=== PATIENT | female | born 1945 | race Caucasian/White ===

== ENCOUNTER 2017-06-25 12:02 | Day surgery (SDC) | payer OTHER, BC ==
[2017-06-25] MEDS ORDERED: morphine CARPU-JECT 4 MG/1 ML DISP.SYRIN IVPUSH ONE ×3 (12:05→13:45)
--- NOTE | 2017-06-25 12:08 | PDOC ---
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 Patient reports she had her right leg propped up on the toilet and suddenly her leg popped out. Patient reports she fell to the floor. Denies head strike or loss of consciousness. She reports she landed on her buttocks. She called Dr. Ware who had done her hip replacement who advised her to come to the emergency department. Patient denies any fevers or chills. Denies headache, neck pain, chest pain, shortness of breath, abdominal pain, nausea/vomiting/diarrhea, lower extremity edema, urinary symptoms. Past History - Past Medical History Allergies/Adverse Reactions: Allergies Allergy/AdvReac Type Severity Reaction Status Date / Time monosodium glutamate Allergy Severe Swelling Verified 06/27/15 13:31 Nitrate Analogues Allergy Severe Swelling Verified 06/27/15 13:31 sulfite Allergy Severe Swelling Verified 06/27/15 13:31 latex AdvReac Verified 06/25/17 12:23 Home Medications: Ambulatory Orders Levothyroxine [Synthroid -] 100 mcg PO DAILY 06/27/15 Azacitidine [Vidaza] 100 mg SQ ASDIR 06/25/17 Senna - 2 PO DAILY 06/25/17 Anemia: No Asthma: No Cancer: No Cardiac Disorders: No CVA: No COPD: No CHF: No Dementia: No Diabetes: No GI Disorders: No Disorders: No HTN: No Hypercholesterolemia: No Liver Disease: No Seizures: No Thyroid Disease: Yes (HYPOTHYROIDISM) - Surgical History Abdominal Surgery: No Appendectomy: No Cardiac Surgery: No Cholecystectomy: No Lung Surgery: No Neurologic Surgery: No Orthopedic Surgery: Yes (LEFT HIP THR 2009) - Suicide/Smoking/Psychosocial Hx Smoking History: Former smoker Have you smoked in the past 12 months: No If you are a former smoker, when did you quit?: OVER 20 YEARS Hx Alcohol Use: Yes (SOCIALLY FEW TIMES PER WEEK) Drug/Substance Use Hx: No Substance Use Type: Alcohol Hx Substance Use Treatment: No Review of Systems - Review of Systems Comments:: 06/25/17 13:04 GENERAL/CONSTITUTIONAL: No fever or chills. No weakness. HEAD, EYES, EARS, NOSE AND THROAT: No change in vision. No ear pain or discharge. No sore throat. GASTROINTESTINAL: No nausea, vomiting, diarrhea or constipation. GENITOURINARY: No dysuria, frequency, or change in urination. CARDIOVASCULAR: No chest pain or shortness of breath. RESPIRATORY: No cough, wheezing, or hemoptysis. MUSCULOSKELETAL: +hip pain. No neck or back pain. SKIN: No rash NEUROLOGIC: No headache, vertigo, loss of consciousness, or change in strength/ sensation. ENDOCRINE: No increased thirst. No abnormal weight change. HEMATOLOGIC/LYMPHATIC: No anemia, easy bleeding, or history of blood clots. ALLERGIC/IMMUNOLOGIC: No hives or skin allergy. *Physical Exam - Physical Exam Comments: 06/25/17 13:06 GENERAL: Awake, alert, and fully oriented, appears uncomfortable HEAD: No signs of trauma EYES: PERRLA, EOMI, sclera anicteric, conjunctiva clear ENT: Auricles normal inspection, hearing grossly normal, nares patent, oropharynx clear without exudates. Moist mucosa NECK: Normal ROM, supple, no lymphadenopathy, JVD, or masses LUNGS: Breath sounds equal, clear to auscultation bilaterally. No wheezes, and no crackles HEART: Regular rate and rhythm, normal S1 and S2, no murmurs, rubs or gallops ABDOMEN: Soft, nontender, normoactive bowel sounds. No guarding, no rebound. No masses EXTREMITIES: RLE short and internally rotated. 2+ TP pulse in RLE. Otherwise: Normal range of motion, no edema. No clubbing or cyanosis. No cords , erythema, or tenderness. 2+ peripheral pulses NEUROLOGICAL: Normal speech, cranial nerves intact, negative pronator drift, 5/ 5 strength in b/l UE & LLE, unable to move RLE 2/2 pain, normal sensation to light touch in all 4 extremities, normal cerebellar exam, gait deferred SKIN: Warm, Dry, normal turgor, no rashes or lesions noted. ED Treatment Course - LABORATORY CBC & Chemistry Diagram: 06/25/17 12:55 06/25/17 12:55 - RADIOLOGY Radiology Studies Ordered: Category Date Time Status HIP & PELVIS-RIGHT [RAD] Stat Radiology 06/25/17 12:04 Ordered Medical Decision Making - Medical Decision Making 06/25/17 13:09 71-year-old female with a history of a right total hip replacement, MDS on chemotherapy presents to emergency Department with sudden onset right hip pain after her R leg gave out while shaving her leg. Vitals unremarkable. Exam with right lower extremity shortened and internally rotated. Likely dislocation of the hip. Dr. Ware is at the bedside, requests x-ray and will likely take the patient to the operating room for reduction. Preop labs have been ordered, morphine has been ordered for pain control. XR pending. 06/25/17 13:41 X-ray with right femoral prosthesis dislocation. Pain controlled with morphine. Dr. Ware will take the patient to the operating room later today. We will admit the patient to [facility]. CBC with no anemia, some leukopenia but no neutropenia. Remainder of labs are pending. 06/25/17 15:29 CMP wnl, pt transported to [facility] for reduction with Dr. Ware. *DC/Admit/Observation/Transfer Diagnosis at time of Disposition: Dislocation of hip joint prosthesis - Discharge Dispostion Condition at time of disposition: Stable Admit: Yes - Referrals - Patient Instructions - Post Discharge Activity - Attestations Physician Attestion: 06/25/17 13:43 I, Dr. Annette Motta MD, attest that this document has been prepared under my direction and personally reviewed by me in its entirety. I further attest, that it accurately reflects all work, treatment, procedures and medical decision -making performed by me.
[2017-06-25 12:32] VITALS: BMI 28.2
[2017-06-25] MEDS ORDERED: morphine SULFATE 4 MG/ML VIAL ONE ×3 (12:36→13:56)
[2017-06-25 13:05] LABS: BASO % 2.3 % (0-2.0); EOS % 1.8 % (0-4.5); HEMATOCRIT 35.5 % (32.4-45.2); HEMOGLOBIN 11.9 GM/dl (10.7-15.3); LYMPH % 29.1 % (8-40); MCH 35.2 pg (25.7-33.7); MCHC 33.6 g/dl (32.0-36.0); MEAN CELL VOLUME 104.6 fl (80-96); MEAN PLT VOLUME 8.6 fl (7.5-11.1); MONO % 16.7 % (3.8-10.2); NEUT % 50.1 % (42.8-82.8); PLATELET COUNT 180 K/MM3 (134-434); RDW 17.7 % (11.6-15.6); WHITE BLOOD COUNT 3.1 K/mm3 (4.0-10.8)
--- NOTE | 2017-06-25 13:35 | CONSULT ---
Consult - text type - Consultation Consultation Note: FULL CONSULT DICTATED IMP: ACUTE RIGHT HIP DISLOCATION PLAN: TO OR TODAY FOR CLOSED REDUCTION UNDER FLUORO AND ANESTHESIA
[2017-06-25 13:38] LABS: ALK PHOS 58 U/L (32-92); ANION GAP 5 (8-16); BILIRUBIN,TOTAL 0.6 mg/dl (0.2-1.0); BLOOD UREA NITROGEN 23 mg/dl (7-18); CALCIUM 8.4 mg/dl (8.4-10.2); CHLORIDE 107 mmol/L (98-107); CO2 23 mmol/L (22-28); CREATININE 0.8 mg/dl (0.6-1.3); GLUCOSE,RANDOM 98 mg/dl (74-106); POTASSIUM 4.3 mmol/L (3.5-5.1); SGOT/AST 25 U/L (10-42); SGPT/ALT 13 U/L (10-40); SODIUM 135 mmol/L (136-145)
[2017-06-25 13:50] LABS: ACTIVATED PTT 31.9 SECONDS (24.0-38.9)
[2017-06-25 13:54] LABS: INR 1.16 (0.82-1.09)
[2017-06-25] MEDS ORDERED: PROPOFOL 20 ML ONE (15:12)
[2017-06-25] MEDS ORDERED: MIDAZOLAM HCL 2 MG/2 ML SINGLE DOSE VIAL ONE (15:13)
--- NOTE | 2017-06-25 15:38 | CONS ---
DATE OF CONSULTATION: 06/25/2017 ORTHOPEDIC CONSULTATION/EMERGENCY ROOM [facility] The patient is a 71-year-old female well known to me. She is 2 years status post right total hip replacement and a few years status post left total hip replacement by another surgeon. The patient was on the toilet today and twisted and felt something pop inside her right hip. She had dislocated her left total knee replacement done by another surgeon a few years back and knew what it felt like that now she dislocated her right side and now presents to our emergency room complaining of pain. On physical exam, she has obvious shortening and internal rotation of her right lower extremity. Her calves are soft, nontender, neurovascularly intact. X-rays taken in the emergency room show a dislocated right total hip replacement. The acetabulum and femoral components appear well seated. IMPRESSION: Status post right hip dislocation. The risks, benefits, and alternatives discussed with the patient in great detail. The patient will be booked for a closed reduction under fluoroscopy and general anesthesia later today. We have to delay a few hours as the patient just age lunch at 10 o'clock, some and we will go ahead and delay little bit later this afternoon. The patient is now on cancer medication for MDS and white count appears a little bit low. Hematocrit is okay. We will try to send the patient home today and keep the patient away from other patients in the hospital to try to decrease the possibility of obtaining a nosocomial infection. RYAN VALDES M.D. [id number]
--- NOTE | 2017-06-25 15:43 | OP ---
Operative Note - Note: Operative Date: 06/25/17 Pre-Operative Diagnosis: DISLOCATED RIGHT TOTAL HIP REPLACEMENT Operation: CLOSED REDUCTION RIGHT HIP UNDER FLUORO AND IND IV SEDATION Post-Operative Diagnosis: Same as Pre-op Surgeon: Cristofer Ware Anesthesia: General Operative Report Dictated: Yes
[2017-06-25] MEDS ORDERED: oxyCODONE HCL 5 MG TABLET PO PRN (15:52)
--- NOTE | 2017-06-25 16:48 | OP ---
DATE OF OPERATION: 06/25/2017 PREOPERATIVE DIAGNOSIS: Dislocated right total hip replacement. POSTOPERATIVE DIAGNOSIS: Dislocated right total hip replacement. PROCEDURE: Closed reduction, right hip, under IV sedation and fluoroscopy. SURGICAL ATTENDING: Cristofer Ware MD ANESTHESIA: IV sedation. COMPLICATIONS: None. CONDITION: Recovery room in stable condition. DESCRIPTION OF OPERATIVE PROCEDURE: Patient was taken to the operating room on June 25, 2017. IV sedation was administered by the anesthesiologist. A gentle closed reduction was performed. Confirmation of excellent reduction was confirmed by fluoroscopy. The hip was taken through a range of motion and found to be very stable post reduction with no loosening of any of the components. Patient was awakened from anesthesia and transferred to Recovery in stable condition. No complications. Estimated blood loss is 0. CRISTOFER WARE M.D. CORNELIO/[id number]
[2017-06-25 17:47] VITALS: TEMP 97.9
[2017-06-25 17:55] VITALS: BP 106/69; PULSE 62
== END 2017-06-25 17:40 | disposition home or self-care (01) ==
LOC: FER 12:02 → FASU 14:40
PROVIDERS: ATTEND Orthopaedic Surgery
PROC: 0SS9XZZ Reposition Right Hip Joint, External Approach (ICD-10-PCS; principal; 2017-06-25 15:34)
DX: T84.020A Dislocation of internal right hip prosthesis, initial encounter (principal); Y83.8 Other surgical procedures as the cause of abnormal reaction of the patient, or of later complication, without mention of misadventure at the time of the procedure; Y92.002 Bathroom of unspecified non-institutional (private) residence as the place of occurrence of the external cause; Z96.643 Presence of artificial hip joint, bilateral; D46.9 Myelodysplastic syndrome, unspecified; Z92.21 Personal history of antineoplastic chemotherapy; E03.9 Hypothyroidism, unspecified; Z88.2 Allergy status to sulfonamides; Z88.8 Allergy status to other drugs, medicaments and biological substances; Z91.040 Latex allergy status; Z87.891 Personal history of nicotine dependence
CPT/HCPCS: 36415; 73502-TC-RT; 73523-TC-FY; 76000-TC-FY; 80053; 85025; 85610; 85730; 94760; 99283-25